=== PATIENT | male | born 1960 | race Caucasian/White ===

== ENCOUNTER 2023-11-01 12:01 | Outpatient (RCR) | payer MEDICARE, SELFPAY | END 2023-11-01 23:59 | disposition home or self-care (01) | LOC: ROT 12:01 | PROVIDERS: ATTENDING PHYSICIAN Family Medicine | DX: G30.9 Alzheimer's disease, unspecified (principal); R41.842 Visuospatial deficit; Z73.6 Limitation of activities due to disability; R41.840 Attention and concentration deficit | CPT/HCPCS: 97167; 97530; 97535 ==

== ENCOUNTER → 2023-11-15 08:56 | Outpatient (REF) | payer MEDICARE, SELFPAY | LOC: MRI 3T 08:56 | PROVIDERS: ATTENDING PHYSICIAN Psychiatry & Neurology Vascular Neurology; FAMILY PHYSICIAN Family Medicine | DX: G31.84 Mild cognitive impairment of uncertain or unknown etiology (principal) | CPT/HCPCS: 70551 ==

== ENCOUNTER 2023-11-30 13:51 | Outpatient (RCR) | payer MEDICARE, SELFPAY | END 2023-11-30 23:59 | disposition home or self-care (01) | LOC: RST 13:51 | PROVIDERS: ATTENDING PHYSICIAN Family Medicine | DX: G30.9 Alzheimer's disease, unspecified (principal); R41.842 Visuospatial deficit; Z73.6 Limitation of activities due to disability; R41.840 Attention and concentration deficit; R41.89 Other symptoms and signs involving cognitive functions and awareness | CPT/HCPCS: 96125; 97129; 97130; 97530; 97535 ==

== ENCOUNTER 2023-12-11 07:17 | Outpatient (RCR) | payer MEDICARE, SELFPAY | END 2023-12-11 12:39 | disposition home or self-care (01) | LOC: RST 07:17 | PROVIDERS: ATTENDING PHYSICIAN Family Medicine | DX: G30.9 Alzheimer's disease, unspecified (principal); R41.842 Visuospatial deficit; Z73.6 Limitation of activities due to disability; R41.840 Attention and concentration deficit; R41.89 Other symptoms and signs involving cognitive functions and awareness | CPT/HCPCS: 97129; 97130; 97530; 97535; 97550 ==

== ENCOUNTER 2024-01-21 13:25 | Emergency (ER) | payer MEDICARE, SELFPAY ==
[2024-01-21 13:29] VITALS: BP 128/89
[2024-01-21] MEDS: MOTRIN 400 MG PO (15:34)
[2024-01-21] MEDS: PERCOCET 5/325 1 TABLET PO (15:34)
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
[2024-01-21] MEDS: KEFLEX 500 MG PO (15:42)
== END 2024-01-21 16:02 | disposition home or self-care (01) ==
LOC: EMR 13:25
PROVIDERS: EMERGENCY PHYSICIAN Emergency Medicine; FAMILY PHYSICIAN Family Medicine
DX: S62.631A Displaced fracture of distal phalanx of left index finger, initial encounter for closed fracture (principal); W34.010A Accidental discharge of airgun, initial encounter; E78.00 Pure hypercholesterolemia, unspecified; I10 Essential (primary) hypertension
CPT/HCPCS: 99283; 29130

== ENCOUNTER → 2024-04-30 07:04 | Outpatient (REF) | payer MEDICARE, OTHER, SELFPAY | LOC: MRI 3T 07:04 | PROVIDERS: ATTENDING PHYSICIAN Psychiatry & Neurology Behavioral Neurology & Neuropsychiatry; FAMILY PHYSICIAN Family Medicine | DX: G30.9 Alzheimer's disease, unspecified (principal) | CPT/HCPCS: 70551 ==

== ENCOUNTER → 2025-03-09 11:32 | Outpatient (REF) | payer MEDICARE, OTHER, SELFPAY | LOC: MRI 3T 11:32 | PROVIDERS: ATTENDING PHYSICIAN Psychiatry & Neurology Behavioral Neurology & Neuropsychiatry; FAMILY PHYSICIAN Physician Assistant | DX: G30.9 Alzheimer's disease, unspecified (principal) | CPT/HCPCS: 70551 ==